=== PATIENT | female | born 1980 | race Caucasian/White ===

== ENCOUNTER → 2016-10-10 | Outpatient (CLI) | payer BC | LOC: FIMAGING 08:12 | PROVIDERS: ATTEND Advanced Practice Midwife | DX: F50.9 Eating disorder, unspecified (principal); O09.523 Supervision of elderly multigravida, third trimester; Z3A.34 34 weeks gestation of pregnancy ==

== ENCOUNTER 2016-11-20 02:20 | Observation (INO) | payer BC ==
[2016-11-20 02:37] LABS: % IMMATURE GRANULYOCYTES 0.6 % (0.0-1.1); ABSOLUTE IMMATURE GRANULOCYTES 0.09 10^3/uL (0.00-0.10); ADD DIFF? NO; ADD MORPH? NO; ADD SCAN? NO; ATYPICAL LYMPHOCYTE FLAG 0 (0-99); FRAGMENT RBC FLAG 0 (0-99); HEMATOCRIT 37.1 % (38.0-47.0); LEFT SHIFT FLG 0 (0-99); LIPEMIA HEMOLYSIS FLAG 90 (0-99); MEAN CELL HEMOGLOBIN 31.3 pg (27.9-34.1); MEAN CELL VOLUME 89.4 fL (81.5-99.8); MEAN PLATELET VOLUME 11.2 fL (8.7-11.7); PLATELET CLUMPS FLAG 0 (0-99); PLATELET COUNT 228 10^3/uL (150-400); RED BLOOD CELL COUNT 4.15 10^6/uL (4.18-5.33); RED CELL DISTRIBUTION WIDTH 14.1 % (11.5-15.2)
[2016-11-20] MEDS ORDERED: fentaNYL 100 MCG/2 ML INJ ONE (02:51)
[2016-11-20] MEDS ORDERED: OXYTOCIN/RINGERS LACTATE 1,000 ML IV ONE (03:00)
[2016-11-20] MEDS ORDERED: SIMETHICONE 80 MG TAB CHEW PO PRN (03:11)
[2016-11-20] MEDS ORDERED: HYDROCORTISONE 0.5% CREAM TP PRN (03:11)
[2016-11-20] MEDS ORDERED: DOCUSATE SODIUM 100 MG CAP PO PRN (03:11)
[2016-11-20] MEDS ORDERED: HYDROCODONE/APAP 5/325 TAB PO PRN (03:11)
[2016-11-20] MEDS: IBUPROFEN 600 MG TAB PO PRN ×4 (03:21→22:20)
--- NOTE | 2016-11-20 04:15 | GHP ---
[f rep st] PREOP HISTORY AND PHYSICAL DATE OF ADMISSION: 11/20/2016 CHIEF COMPLAINT: Retained placenta. HISTORY OF PRESENT ILLNESS: The patient is a 36-year-old, G1, P1, female who delivered via an uncomplicated vaginal delivery at the [facility]. She delivered at 1:27 a.m on 11/20/16. Had a normal course of labor. Delivered of a viable female infant. However, with delivery of placenta, an evulsion of the cord occurred, and the patient was not able to deliver the placenta. The patient had approximately EBL of 600 mL, and was transferred to the [facility] at [facility]. At the time of her presentation here, she felt an urge to push and delivered the placenta. Approximate EBL at [facility] was an additional 400 mL for a total EBL of 1000 mL. Upon examination of the patient, a bedside ultrasound was performed. The patient had a normal endometrial stripe of 2 cm at her fundus with no evidence of retained placenta. Her lower uterine segment did appear to have some clot that was measuring 3.18 cm. After manual sweeping of the lower uterine segment , that clot was removed. The ultrasound was performed again, and her lower uterine segment was then 1.71 cm. She then had a small first-degree laceration without any bleeding, so plan was not to repair that. PAST MEDICAL HISTORY: Negative. PAST SURGICAL HISTORY: Negative. MEDICATIONS: She is taking no current medications. ALLERGIES: She is allergic to ciprofloxacin. GYNECOLOGIC HISTORY: Noncontributory. As stated, she has had an uncomplicated . No evidence of succenturiate lobe on ultrasound during this . REVIEW OF SYSTEMS: Positive for vaginal bleeding and uterine cramping. EXAM: VITAL SIGNS: The patient's blood pressure is 123/79, her pulse is 70. Her temperature is 36.5. GENERAL: She is in no apparent distress. ABDOMEN: Soft, nontender. The uterus was 2 cm below the umbilicus on exam. On vaginal exam, she had a small 1 cm first-degree laceration that was not bleeding. She had no evidence of vulvar hematoma. Manual exploration of the lower uterine segment revealed approximately 200 mL of blood clot, but no evidence of retained placenta. LABORATORY DATA: As stated, she did have a bedside ultrasound, which showed a very clear and distinct endometrial stripe with the fundus down to the lower uterine segment, and no specific evidence of retained placenta in the lower uterine segment or membranes. The patient did have a hematocrit that was drawn at time of admission, which was 37% and her platelets were 228. ASSESSMENT AND PLAN: This is a 36-year-old, G1, P1, female who delivered at 1: 27 a.m. with initial retained placenta. Has now delivered that placenta, and has no evidence of continued retained placenta or hemorrhage. Discussed with the patient, we will continue to monitor her symptoms and her bleeding. We will recheck a blood count this morning at 6 a.m., 4 hours after delivery, and if it is stable, we will anticipate discharge home. The patient understands this plan and agrees with this plan. /[id number]/MODL MTDD
--- NOTE | 2016-11-20 09:57 | GDS ---
[f rep st] DISCHARGE SUMMARY DISCHARGE DIAGNOSES: Status post normal spontaneous vaginal delivery with retained placenta with sp ontaneous delivery of placenta and mild hemorrhage. HISTORY OF PRESENT ILLNESS: The patient is a 36-year-old, G1, P1, female who had an uncomplicated v aginal delivery at the [facility] at approximately 1:30 in the morning on 11/20/2016, who subsequently had a cord avulsion and retained placenta, and was transferred to [facility] for evaluation and management. At the time of presentation, the patient f elt an urge to push and had significant cramping, and spontaneously delivered the placenta on her ow n. The patient was evaluated with ultrasound for any evidence of retained placenta. She had a thin endometrial stripe. There did show evidence of retained clot to the lower uterine segment that was evacuated manually. The patient had serial hematocrits. Her initial hematocrit was 37. Her hemat ocrit 4 hours later was 35. Her total EBL was approximately 1000 mL. After evaluation in the [facility] in observation, she was doing quite well. Her pain was well controlled. She had normal amount of bleeding and normal vital signs. DISCHARGE EXAM: VITAL SIGNS: Stable. GENERAL: She is in no apparent distress. ABDOMEN: Soft, n ontender. Her fundus is firm. It is 2 cm below the umbilicus. LABORATORY DATA: Discharge hematocrit, as stated, is 35%. DISCHARGE INSTRUCTIONS: Include nothing in the vagina for 6 weeks. Call for fevers, chills, or hea vy vaginal bleeding. She is to follow up with her primary providers within 3-5 days, and she is to call with any issues. /[id number]/MODL
[2016-11-21] MEDS: IBUPROFEN 600 MG TAB PO PRN ×3 (06:56→22:15)
[2016-11-21 07:43] VITALS: RESP 16
--- NOTE | 2016-11-21 08:56 | SOAPPROG ---
SOAP Progress Note Assessment/Plan: Assessment: PPD#1 Delivered at 0130 yesterday, transferred to [facility] from center with retained placenta and PPH EBL 1000. Hct stable, no symptomatic anemia Pt desires to stay until PPD#2 Rh+ Plan: Routine pp [facility] tomorrow Will follow-up with Center 11/21/16 08:53 Subjective: Tired but feeling well. Really happy with care here. BF going well. Wants to see today. Wants to stay until tomorrow. Minimal bleeding. Motrin working for cramping Objective: Vital Signs Temp Pulse Resp BP Pulse Ox 36.9 C 69 16 116/82 H 96 11/21/16 07:42 11/21/16 07:42 11/21/16 07:42 11/21/16 07:42 11/21/16 07:42 Laboratory Results 11/20/16 06:15 Gen: NAD Resp: unlabored CV: reg rate Breast: soft Abd: soft, nontender, uterus firm below U Ext: no edema ICD10 Worksheet Patient Problems: Problems Problem Status Onset Retained placenta without hemorrhage Acute
[2016-11-22 07:53] VITALS: BP 115/79; PULSE 79; TEMP 98; O2SAT 97
--- NOTE | 2016-11-22 08:22 | OBGCSDC ---
General Delivery Information - General Info : 1 Para: 1 Abortions: 0 Delivery Date: 11/20/16 Admission Date: 11/20/16 Labs: Hct 35.6 % (38.0-47.0) L 11/20/16 06:15 Vaginal - Diagnosis IUP (Weeks): 39 5/7 Labor: Spontaneous - Operations/Procedures Delivery Type: Spontaneous Discharge Information - Discharge Information Discharge Medications: Ibuprofen, Vitamins, Vicodin Complications: retained placenta after effused umbilical cord Condition: Good Instruction/Follow Up: Two Weeks Discharge Physician/CNM: Adilene Moeller Discharge Date: 11/22/16 Dictated: No
[2016-11-22] MEDS: IBUPROFEN 600 MG TAB PO PRN (08:29)
== END 2016-11-22 12:00 | disposition home or self-care (01) ==
LOC: FLD 02:20 → INTOOBSV 02:20 → FOB 10:14
PROVIDERS: ADMIT Obstetrics & Gynecology; ATTEND Obstetrics & Gynecology
DX: O72.0 Third-stage hemorrhage (principal)
CPT/HCPCS: 99241; G0378; G0463; J3010